=== PATIENT | female | born 2000 | race Caucasian/White ===

== ENCOUNTER 2021-02-27 04:13 | Emergency (ER) | payer OTHER ==
[2021-02-27 05:05] LABS: HEMOGLOBIN 13.4 gm/dl (12.3-15.3); RED BLOOD COUNT 4.2 M/UL (4.00-5.10); WHITE BLOOD COUNT 11.5 K/UL (4.5-11.0)
[2021-02-27 05:16] LABS: BUN/CREATININE RATIO 17 (0-10)
[2021-02-27] MEDS ORDERED: PREDNISONE 50 M50 MG PO (06:35)
[2021-02-27] MEDS ORDERED: BENADRYL 25MG C25 MG PO (06:35)
== END 2021-02-27 06:37 | disposition home or self-care (01) ==
LOC: ER1 04:13
PROVIDERS: Emergency Medicine
DX: T78.40XA Allergy, unspecified, initial encounter (principal); F17.200 Nicotine dependence, unspecified, uncomplicated
CPT/HCPCS: 80053; 81001; 83690; 84703; 85025; 96365; 96375; 99284; J1200; J2930